=== PATIENT | female | born 1975 | race Caucasian/White ===

== ENCOUNTER 2019-04-28 13:37 | Emergency (ER) | payer OTHER ==
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
[2019-04-28 13:56] VITALS: BP 129/81; PULSE 81; TEMP 97.9; BMI 26.9
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
== END 2019-04-28 17:06 | disposition home or self-care (01) ==
LOC: JERFT 13:37
DX: S06.0X0A Concussion without loss of consciousness, initial encounter (principal); S16.1XXA Strain of muscle, fascia and tendon at neck level, initial encounter; M62.838 Other muscle spasm; V49.49XA Driver injured in collision with other motor vehicles in traffic accident, initial encounter; Y92.414 Local residential or business street as the place of occurrence of the external cause; Y93.89 Activity, other specified; Y99.8 Other external cause status
CPT/HCPCS: 70450-TC; 72125-TC; 99281-25